=== PATIENT | female | born 1935 | race Hispanic/Latino ===

== ENCOUNTER 2017-04-21 16:53 | Emergency (ER) | payer MEDICARE ==
--- NOTE | 2017-04-21 17:53 | Emergency Department Report ---
ED General Adult HPI - General Chief complaint: Fall Stated complaint: FALL/HIT HEAD Time Seen by Provider: 04/21/17 17:41 Source: EMS, RN notes reviewed Mode of arrival: Stretcher Limitations: Other - History of Present Illness Initial comments: Patient is sent from the group home for evaluation of fall. Initially she arrived here she started to wander. She was fully ambulatory. She was assured back to her room by an x-ray technologist. She seemed to be quite spry and was able to get in and out of her bed without any difficulty. Her transfer information indicated that she was sent fall with head injury. However, when her daughter arrived she informed the nurse that she "does this all the time". The daughter states that she has told the group home not to send her to the emergency department in this type of circumstance. Patient already returned from her CT of her head at the time of her daughter's arrival. -: hour(s) - Related Data Allergies Allergy/AdvReac Type Severity Reaction Status Date / Time No Known Allergies Allergy Unverified 04/21/17 17:16 ED Review of Systems ROS: Stated complaint: FALL/HIT HEAD Other details as noted in HPI Comment: Unobtainable due to pts medical conditions ED Past Medical Hx - Past Medical History Previous Medical History?: Yes Hx CVA: Yes Hx Diabetes: Yes Hx COPD: Yes Hx Dementia: Yes Additional medical history: etoh abuse - Social History Smoking Status: Unknown if ever smoked Other Social History: half-way resident ED Physical Exam - General Limitations: Other (dementia) General appearance: alert, in no apparent distress - Head Head exam: Present: atraumatic (I do not note any evidence of head injury), normocephalic - Eye Eye exam: Present: normal appearance. Absent: scleral icterus - ENT ENT exam: Present: normal exam, mucous membranes moist - Neck Neck exam: Present: normal inspection. Absent: tenderness, meningismus - Respiratory Respiratory exam: Present: normal lung sounds bilaterally. Absent: respiratory distress - Cardiovascular Cardiovascular Exam: Present: regular rate, normal rhythm. Absent: systolic murmur, diastolic murmur, rubs, gallop - GI/Abdominal GI/Abdominal exam: Present: soft, normal bowel sounds. Absent: distended, tenderness, guarding, rebound - Extremities Exam Extremities exam: Present: normal inspection - Back Exam Back exam: Present: normal inspection - Neurological Exam Neurological exam: Present: alert, oriented X3, CN II-XII intact, normal gait. Absent: motor sensory deficit - Psychiatric Psychiatric exam: Present: normal affect, normal mood - Skin Skin exam: Present: warm, dry, intact, normal color. Absent: rash ED Course Vital Signs 04/21/17 17:11 Temperature 98.4 F Pulse Rate 72 Respiratory 18 Rate Blood Pressure 118/72 O2 Sat by Pulse 97 Oximetry ED Medical Decision Making - Radiology Data Radiology results: report reviewed interpreted by me: No acute intracranial abnormality noted. The radiologist comments on the possibility of nasal fracture. I reviewed these images. I don't see any evidence of an acute fracture. There is apparently acquired nasal deformity and septal deviation. However I do not see anything that suggests an acute injury. In addition the patient has no nasal injury on exam Critical care attestation.: If time is entered above; I have spent that time in minutes in the direct care of this critically ill patient, excluding procedure time. ED Disposition Clinical Impression: Fall Qualifiers: Encounter type: initial encounter Qualified Code(s): W19.XXXA - Unspecified fall, initial encounter Closed head injury Qualifiers: Encounter type: initial encounter Qualified Code(s): S09.90XA - Unspecified injury of head, initial encounter Disposition: DISCHARGED TO HOME OR SELFCARE Is pt being admited?: No Does the pt Need Aspirin: No Condition: Stable Instructions: Minor Head Injury (ED) Additional Instructions: Return any acute change or problem. Follow-up with primary care provider. Referrals: PRIMARY CARE, [Primary Care Provider] - 3-5 Days Time of Disposition: 18:44
--- NOTE | 2017-04-21 18:24 | Cat Scan Report ---
FINAL REPORT PROCEDURE: CT HEAD/BRAIN WO CON TECHNIQUE: Computerized tomography of the head was performed without contrast material. HISTORY: trauma COMPARISON: No prior studies are available for comparison. FINDINGS: Skull and scalp: Suspect scalp swelling right maxillary and periorbital region. Suspect displaced nasal bone fracturing. Defer to CT maxillofacial study to further evaluate.. Paranasal sinuses: Mucous retention cyst or polyp in the right posterior ethmoid sinus. Frothy web like material in the left sphenoid sinus with slight mucosal thickening.. Ventricles and subarachnoid spaces: Normal. Cerebrum: No evidence of hemorrhage, acute infarction or mass . Cerebellum and brainstem: No evidence of hemorrhage, acute infarction or mass. Vasculature: Atherosclerosis with dominant right vertebral artery. Comments: Moderate diffuse atrophy with mild periventricular microischemic change and with central lacunar infarct disease.. IMPRESSION: No acute intracranial bleed or skull fracture seen at this time Suspect nasal bone fracturing Defer to CT facial study as warranted
[2017-04-21 18:41] VITALS: BP 120/72
== END 2017-04-21 19:01 | disposition home or self-care (01) ==
LOC: ED 16:53
DX: S09.90XA Unspecified injury of head, initial encounter (principal); Z86.73 Personal history of transient ischemic attack (TIA), and cerebral infarction without residual deficits; W06.XXXA Fall from bed, initial encounter; Y93.89 Activity, other specified; Y99.8 Other external cause status; Y92.89 Other specified places as the place of occurrence of the external cause; E11.9 Type 2 diabetes mellitus without complications; J44.9 Chronic obstructive pulmonary disease, unspecified; F03.90 Unspecified dementia, unspecified severity, without behavioral disturbance, psychotic disturbance, mood disturbance, and anxiety
CPT/HCPCS: 70450

== ENCOUNTER 2017-11-04 15:45 | Emergency (ER) | payer MEDICARE ==
[2017-11-04] MEDS ORDERED: BOOSTRIX IM ONE (16:49)
--- NOTE | 2017-11-04 16:52 | Emergency Department Report ---
HPI - General Chief Complaint: Wound/Laceration Time Seen by Provider: 11/04/17 16:41 - HPI HPI: Room 3 The patient is an 82-year-old female presented with a chief complaint of fall. The patient states she fell when others were assisting her move. The patient does have a history of dementia and the halfway reports that the patient on the floor with a laceration and hematoma to her head. The patient currently denies any complaints Location: Head Duration: 1 day Quality: Painless Severity: 0/10 Modifying factors: [see above] Context: [see above] Mode of transportation: [not driving] ED Past Medical Hx - Past Medical History Hx CVA: Yes Hx Diabetes: Yes Hx COPD: Yes Hx Dementia: Yes Additional medical history: etoh abuse - Family History Family history: no significant - Social History Smoking Status: Unknown if ever smoked ED Review of Systems ROS: Stated complaint: HEAD BLEEDING Other details as noted in HPI Comment: Unobtainable due to pts medical conditions Physical Exam - Physical Exam Vital Signs: Vital Signs 11/04/17 16:27 Temperature 97.6 F Pulse Rate 94 H Respiratory 20 Rate Blood Pressure 162/74 O2 Sat by Pulse 93 Oximetry Physical Exam: GENERAL: The patient is well-developed well-nourished female lying on stretcher with bandage around her head not appearing to be in acute distress HEENT: Normocephalic. Atraumatic. Extraocular motions are intact. Patient has moist mucous membranes. NECK: Supple. No axial step offs CHEST/LUNGS: Clear to auscultation. There is no respiratory distress noted. HEART/CARDIOVASCULAR: Regular. There is no tachycardia. There is no gallop rub or murmur. ABDOMEN: Abdomen is soft, nontender. Patient has normal bowel sounds. There is no abdominal distention. SKIN: There is no rash. There is no diaphoresis. NEURO: The patient is awake and alert but appears pleasantly demented. The patient is cooperative. The patient has normal speech. Patient moves upper extremities well MUSCULOSKELETAL: There is no limitation range of motion. ED Course Vital Signs 11/04/17 16:27 Temperature 97.6 F Pulse Rate 94 H Respiratory 20 Rate Blood Pressure 162/74 O2 Sat by Pulse 93 Oximetry - Laceration /Wound Repair Right Occipital Wound Location: head Wound Length (cm): 3 Wound's Depth, Shape: irregular Wound Explored: no foreign body removed Irrigated w/ Saline (ccs): 250 Betadine Prep?: No Anesthesia: 1% Lidocaine Volume Anesthetic (ccs): 5 Progress: Wound closed with 8 danie ED Medical Decision Making - Lab Data Result diagrams: 11/04/17 16:50 11/04/17 16:50 Laboratory Tests 11/04/17 11/04/17 11/04/17 16:50 16:50 16:50 WBC 10.6 RBC 4.02 Hgb 10.9 Hct 32.9 MCV 82 MCH 27 L MCHC 33 RDW 14.7 Plt Count 362 Lymph % (Auto) 12.0 L [place] % (Auto) 5.3 Eos % (Auto) 0.4 Baso % (Auto) 0.4 Lymph # 1.3 [place] # 0.6 Eos # 0.0 Baso # 0.0 Seg Neutrophils % 81.9 H Seg Neutrophils # 8.7 H PT 12.2 INR 0.87 APTT 24.7 Sodium 137 Potassium 2.5 L* Chloride 87.4 L Carbon Dioxide 32 H Anion Gap 20 BUN 13 Creatinine 0.9 Estimated GFR > 60 BUN/Creatinine Ratio 14 Glucose 83 Calcium 8.9 Total Creatine Kinase 83 CK-MB (CK-2) 3.5 CK-MB (CK-2) Rel Index 4.2 H Troponin T < 0.010 - Radiology Data Radiology results: report reviewed (CT head, CT cervical spine), image reviewed (CT head, CT cervical spine) FINAL REPORT PROCEDURE: CT cervical spine without contrast. TECHNIQUE: Computerized tomography of the cervical spine was performed from the skull base to T1 without contrast material. HISTORY: Patient fell, neck injury. COMPARISON: No prior studies are available for comparison. FINDINGS: The cervical vertebrae have normal height and satisfactory alignment. There are no fractures. There is no subluxation. There is disc space narrowing throughout the cervical spine. There are small vertebral body osteophytes in the mid and lower cervical spine. The spinal canal is adequately patent. 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 The neural foramina appear adequately patent. The prevertebral soft tissues have normal thickness. IMPRESSION: Extensive degenerative disease. No evidence of acute cervical spine injury. Transcribed By: MRM Dictated By: MEGHA VELAZQUEZ MD Electronically Authenticated By: MEGHA VELAZQUEZ MD Signed Date/Time: 11/04/17 1350 DD/ 49 FINAL REPORT PROCEDURE: CT head without contrast. TECHNIQUE: Computerized tomography of the head was performed without contrast material. HISTORY: Patient fell, head laceration. COMPARISON: CT head 04/21/2017. FINDINGS: There is mild cerebral atrophy. There is mild evidence of chronic ischemic white matter disease. There are no mass lesions. There is no intracranial hemorrhage. The calvarium appears intact. The mastoid air cells are clear. There is mucosal thickening in the left sphenoid sinus. There is a large subcutaneous hematoma in the right posterior scalp. IMPRESSION: Normal study of the brain for age. Scalp hematoma. Transcribed By: MRM Dictated By: MEGHA VELAZQUEZ MD Electronically Authenticated By: MEGHA VELAZQUEZ MD Signed Date/Time: 11/04/171353 DD/ 53 TD/TT: 11/04/171353 - Medical Decision Making Case discussed with hospice nurse at bedside. Hospice nurse states that the daughter does not wish patient to be admitted at [facility]. Hospice nurse states that she is looking into bed availability at hospice inpatient facilities for further management - Differential Diagnosis ICH, subdural hematoma, closed head injury, scalp laceration Critical care attestation.: If time is entered above; I have spent that time in minutes in the direct care of this critically ill patient, excluding procedure time. ED Disposition Clinical Impression: Hypokalemia, Closed head injury, Fall, Scalp laceration Disposition: DC/TX-70 ANOTHER TYPE HLTHCARE Is pt being admited?: Yes Does the pt Need Aspirin: No Condition: Fair Referrals: PRIMARY CAREMD [Primary Care Provider] - 3-5 Days Time of Disposition: 19:23 (awaiting callback from hospice for inpatient bed)
[2017-11-04 17:06] LABS: Basophils % (Auto) 0.4 % (0.0-1.8); Eosinophils % (Auto) 0.4 % (0.0-4.3); Hematocrit 32.9 % (30.3-42.9); Hemoglobin 10.9 gm/dl (10.1-14.3); Mean Corpuscular HGB Conc 33 % (30-34); Mean Corpuscular Hemoglobin 27 pg (28-32); Mean Corpuscular Volume 82 fl (79-97); Platelet Count 362 K/mm3 (140-440); Red Blood Count 4.02 M/mm3 (3.65-5.03); Red Cell Distribution Width 14.7 % (13.2-15.2); White Blood Count 10.6 K/mm3 (4.5-11.0)
[2017-11-04 17:16] LABS: INR 0.87 (0.87-1.13); Partial Thromboplastin Time 24.7 Sec. (24.2-36.6)
[2017-11-04 17:29] LABS: Creatine Kinase MB 3.5 ng/mL (0.0-4.0)
[2017-11-04 17:30] LABS: Anion Gap 20 mmol/L; BUN/Creatinine Ratio 14; Blood Urea Nitrogen 13 mg/dL (7-17); Calcium 8.9 mg/dL (8.4-10.2); Carbon Dioxide 32 mmol/L (22-30); Chloride 87.4 mmol/L (98-107); Creatine Kinase 83 units/L (30-135); Glucose 83 mg/dL (65-100); Sodium 137 mmol/L (137-145)
[2017-11-04 17:49] LABS: Potassium 2.5 mmol/L (3.6-5.0)
[2017-11-04] MEDS ORDERED: K-DUR PO ONE (17:51)
--- NOTE | 2017-11-04 17:54 | Cat Scan Report ---
FINAL REPORT PROCEDURE: CT cervical spine without contrast. TECHNIQUE: Computerized tomography of the cervical spine was performed from the skull base to T1 without contrast material. HISTORY: Patient fell, neck injury. COMPARISON: No prior studies are available for comparison. FINDINGS: The cervical vertebrae have normal height and satisfactory alignment. There are no fractures. There is no subluxation. There is disc space narrowing throughout the cervical spine. There are small vertebral body osteophytes in the mid and lower cervical spine. The spinal canal is adequately patent. 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 The neural foramina appear adequately patent. The prevertebral soft tissues have normal thickness. IMPRESSION: Extensive degenerative disease. No evidence of acute cervical spine injury.
--- NOTE | 2017-11-04 17:57 | Cat Scan Report ---
FINAL REPORT PROCEDURE: CT head without contrast. TECHNIQUE: Computerized tomography of the head was performed without contrast material. HISTORY: Patient fell, head laceration. COMPARISON: CT head 04/21/2017. FINDINGS: There is mild cerebral atrophy. There is mild evidence of chronic ischemic white matter disease. There are no mass lesions. There is no intracranial hemorrhage. The calvarium appears intact. The mastoid air cells are clear. There is mucosal thickening in the left sphenoid sinus. There is a large subcutaneous hematoma in the right posterior scalp. IMPRESSION: Normal study of the brain for age. Scalp hematoma.
[2017-11-04] MEDS ORDERED: KCL 10MEQ/100ML 10 MEQ/100 ML BAG IV SCH (18:00)
[2017-11-04] MEDS ORDERED: HYDROGEN PEROXIDE TP STA (18:48)
[2017-11-04] MEDS ORDERED: NACL 0.9% 500 ML IR ONE (18:48)
[2017-11-04] MEDS ORDERED: NACL 0.9% IR ONE (18:48)
[2017-11-04] MEDS ORDERED: HYDROGEN PEROXIDE ONE (18:48)
[2017-11-04] MEDS ORDERED: XYLOCAINE 2% INFILTRATI ONE (18:51)
[2017-11-04] MEDS ORDERED: XYLOCAINE 2% INFILTRATI STA (18:51)
[2017-11-04 18:55] VITALS: BP 176/79
[2017-11-04] MEDS ORDERED: TRIPLE ANTIBIOTIC TP ONE (20:43)
== END 2017-11-04 21:20 | disposition other institution (70) ==
LOC: ED 15:45
DX: S01.01XA Laceration without foreign body of scalp, initial encounter (principal); E87.6 Hypokalemia; E11.9 Type 2 diabetes mellitus without complications; J44.9 Chronic obstructive pulmonary disease, unspecified; F03.90 Unspecified dementia, unspecified severity, without behavioral disturbance, psychotic disturbance, mood disturbance, and anxiety; Z86.73 Personal history of transient ischemic attack (TIA), and cerebral infarction without residual deficits; W18.39XA Other fall on same level, initial encounter; Y93.89 Activity, other specified; Y92.89 Other specified places as the place of occurrence of the external cause; Y99.8 Other external cause status
CPT/HCPCS: 12002; 36415; 70450; 72125; 80048; 82550; 82553; 84484; 85025; 85610; 85730; 90471; 90715; 96360; 99285; J3480; A6250